=== PATIENT | female | born 1940 | race Caucasian/White ===

== ENCOUNTER 2018-09-23 12:55 | Inpatient (IN) ==
[2018-09-23] MEDS ORDERED: ONDANSETRON 4 MG/2 ML VIAL IV PRN (20:06)
[2018-09-23] MEDS ORDERED: ACETAMINOPHEN 325 MG TABLET PO PRN (20:06)
[2018-09-23] MEDS ORDERED: oxyCODONE/ACETAMINOPHEN 5-325 MG TABLET PO PRN (20:16)
[2018-09-23] MEDS ORDERED: MAGNESIUM HYDROXIDE SUSP 30 ML UDCUP PO PRN (20:16)
[2018-09-23] MEDS ORDERED: MORPHINE 4 MG/1 ML VIAL IV PRN (20:16)
[2018-09-24] MEDS: METOPROLOL SUCCINATE XL 25 MG TABLET PO SCH ×2 (11:47→21:19)
[2018-09-24] MEDS: PANTOPRAZOLE 40 MG TABLET PO SCH (11:48)
[2018-09-24] MEDS: LOSARTAN 50 MG TABLET PO SCH (11:48)
[2018-09-24] MEDS: MORPHINE ER 15 MG TABLET PO SCH ×2 (11:49→21:19)
[2018-09-24] MEDS: FLUTICASONE/SALMETEROL 250-50 DISKUS 14 DOSE INH SCH ×3 (11:51→21:21)
[2018-09-24] MEDS ORDERED: APIXABAN 5 MG TABLET PO SCH (12:00)
[2018-09-24] MEDS: ALBUTEROL/IPRATROPIUM 3 ML NEB RESP TX SCH ×2 (12:02→19:58)
[2018-09-24 12:27] LABS: Troponin I < 0.015 NG/ML (0.00-0.045)
[2018-09-24] MEDS ORDERED: DEXT 5% NACL 0.45% KCL 10 MEQ 10 MEQ/1,000 ML BAG IV SCH ×2 (12:30→14:30)
[2018-09-24] MEDS: oxyCODONE/ACETAMINOPHEN 5-325 MG TABLET PO PRN ×2 (14:23→23:48)
[2018-09-24] MEDS: DICYCLOMINE 20 MG TABLET PO SCH ×3 (14:24→21:19)
[2018-09-24 14:54] LABS: Basophils # 0.1 10*3/uL (0.0-0.2); Basophils % 0.6 % (0.0-0.8); Eosinophils # 0.2 10*3/uL (0.0-0.87); Eosinophils % 2.7 % (0.00-10.9); Hematocrit 40.5 VOL% (35.7-47.0); Hemoglobin 13.1 GM/DL (12.0-16.0); Immature Granulocytes % 0.7 %; Immature Granulocytes Absolute 0.06 #; Lymphocytes # 1.8 10*3/uL (1.4-4.0); Lymphocytes % 21.7 % (21.3-54.2); Mean Corpuscular HGB Conc 32.3 GM/DL (32-36); Mean Corpuscular Hemoglobin 31 PG (27-34); Mean Platelet Volume 9.6 FL (9.6-12.0); Monocytes # 0.5 10*3/uL (0.11-0.8); Monocytes % 6.4 % (1.7-12.7); Neutrophils # 5.6 10*3/uL (1.4-7.4); Neutrophils % 67.9 % (38.7-73.9); Platelet Count 170 T/CUMM (130-400); Red Blood Count 4.22 MC/CUMM (3.8-5.5); Red Cell Distribution Width 12.9 % (9.3-17.3); White Blood Count 8.2 T/CUMM (4-12)
[2018-09-24 15:06] LABS: Calcium 8.6 MG/DL (8.5-10.1); Osmolality,Calculated 273.7 MOS/KG (273-304); Potassium 3.6 MMOL/L (3.5-5.1)
[2018-09-24 15:12] LABS: Troponin I < 0.015 NG/ML (0.00-0.045)
[2018-09-24 16:39] LABS: Apearance,Urine CLEAR (Clear); Bacteria,Urine Occasional /HPF (Few); Bilirubin,Urine Negative (Negative); Blood, Urine Negative (Negative); Glucose,Urine (UA) Negative (Negative); Ketones,Urine Negative (Negative); Mucus,Urine Occasional /LPF (Occasional); Nitrite,Urine Negative (Negative); Protein,Urine Negative; RBC,Urine <1 /HPF (0-4); Squamous Epithelial Cell,Urine Occasional /HPF (0-10); Urine Color Yellow (Yellow); Urine Specific Gravity 1.011 (1.001-1.035); Urine Urobilinogen < 2.0 EU/DL (0.2-1.0); WBC,Urine 1 /HPF (0-6)
[2018-09-24 18:07] LABS: Troponin I < 0.015 NG/ML (0.00-0.045)
[2018-09-24] MEDS ORDERED: cloNIDine 0.1 MG TABLET PO SCH (21:00)
[2018-09-24] MEDS ORDERED: PREGABALIN 75 MG CAPSULE PO SCH (21:00)
[2018-09-24] MEDS ORDERED: SIMVASTATIN 40 MG TABLET PO SCH (21:00)
[2018-09-25] MEDS: ALBUTEROL/IPRATROPIUM 3 ML NEB RESP TX SCH ×3 (02:40→14:10)
[2018-09-25 04:41] LABS: Basophils % 0.5 % (0.0-0.8); Eosinophils # 0.2 10*3/uL (0.0-0.87); Eosinophils % 3.4 % (0.00-10.9); Hematocrit 35.4 VOL% (35.7-47.0); Hemoglobin 11.4 GM/DL (12.0-16.0); Immature Granulocytes % 0.3 %; Immature Granulocytes Absolute 0.02 #; Lymphocytes # 1.5 10*3/uL (1.4-4.0); Lymphocytes % 24.6 % (21.3-54.2); Mean Corpuscular HGB Conc 32.2 GM/DL (32-36); Mean Corpuscular Hemoglobin 31 PG (27-34); Mean Corpuscular Volume 96.7 FL (87-102); Mean Platelet Volume 9.6 FL (9.6-12.0); Monocytes # 0.6 10*3/uL (0.11-0.8); Monocytes % 9.8 % (1.7-12.7); Neutrophils # 3.8 10*3/uL (1.4-7.4); Neutrophils % 61.4 % (38.7-73.9); Platelet Count 199 T/CUMM (130-400); Red Blood Count 3.66 MC/CUMM (3.8-5.5); Red Cell Distribution Width 12.5 % (9.3-17.3); White Blood Count 6.1 T/CUMM (4-12)
[2018-09-25 04:48] LABS: Calcium 8.2 MG/DL (8.5-10.1); Osmolality,Calculated 280.3 MOS/KG (273-304); Potassium 3.8 MMOL/L (3.5-5.1)
[2018-09-25 04:53] LABS: Risk Ratio 2.25; VLDL CHOLESTEROL 12.2 MG/DL
[2018-09-25] MEDS ORDERED: LEVOFLOXACIN INJ 500 MG in PREMIX 1 EACH IV SCH (08:00)
[2018-09-25] MEDS ORDERED: REGADENOSON 0.4 MG/5 ML SYRINGE IV ONE (08:26)
[2018-09-25] MEDS ORDERED: ASPIRIN EC 81 MG TABLET PO SCH (09:00)
[2018-09-25] MEDS: oxyCODONE/ACETAMINOPHEN 5-325 MG TABLET PO PRN (11:30)
[2018-09-25] MEDS: MORPHINE ER 15 MG TABLET PO SCH (11:32)
[2018-09-25] MEDS: PANTOPRAZOLE 40 MG TABLET PO SCH (11:32)
[2018-09-25] MEDS: LOSARTAN 50 MG TABLET PO SCH (11:32)
[2018-09-25] MEDS: DICYCLOMINE 20 MG TABLET PO SCH ×2 (11:33→14:47)
[2018-09-25] MEDS: FLUTICASONE/SALMETEROL 250-50 DISKUS 14 DOSE INH SCH (11:41)
[2018-09-25] MEDS ORDERED: predniSONE 20 MG TABLET PO SCH (13:00)
[2018-09-25 16:23] VITALS: BP 91/51
== END 2018-09-25 18:45 | disposition home or self-care (01) | DRG 309 ==
LOC: N.CC 09-24 10:25 → N.TELEN 09-24 15:53
PROVIDERS: ADMIT Family Medicine; ATTEND Family Medicine